=== PATIENT | female | born 1990 | race Caucasian/White ===

== ENCOUNTER 2016-05-21 00:37 | Emergency (ER) | payer MEDICAID ==
[2014-12-29 00:44] VITALS: BMI 40.6
[~2016-05-21 00:37] MED LIST: IBUPROFEN600 MG PO; PERCOCET 5-3251 TAB PO; PRENAVITE1 TAB PO; ZANTAC150 MG PO
[2016-05-21 01:33] LABS: APPEARANCE CLEAR (CLEAR); BILIRUBIN NEGATIVE (NEGATIVE); COLOR YELLOW (YELLOW); GLUCOSE NEGATIVE (NEGATIVE); KETONE NEGATIVE (NEGATIVE); LEUKOCYTE ESTERASE NEGATIVE (NEGATIVE); NITRITE NEGATIVE (NEGATIVE); PH 5.5 (5.0-6.0); PROTEIN NEGATIVE (NEGATIVE); SPECIFIC GRAVITY 1.015 (1.005-1.020); UROBILINOGEN NORMAL (NORMAL)
[2016-05-21 01:38] LABS: BACTERIA FEW /hpf (NONE SEEN); EPITHELIAL CELLS 0-5 /hpf (0-5); RED CELLS - URINE 0-5 /hpf (0-5); WHITE CELLS - URINE RARE /hpf (0-5)
[2016-05-21 02:04] LABS: HCG SERUM NEGATIVE (NEGATIVE)
[2016-05-21 02:07] LABS: BASOPHILS 0.2 % (0.0-2.0); EOSINOPHILS 4.7 % (0-7); HEMATOCRIT 39.8 % (36.0-48.0); HEMOGLOBIN 13.5 g/dL (12-16); IMMATURE GRANULOCYTES 0.2 % (0-5); MCHC 33.9 g/dL (31.0-37.0); MCV 88.4 fL (80.0-100.0); MEAN PLATELET VOLUME 12.5 fL (7.4-10.4); MONOCYTES 6.8 % (2-11); NEUTROPHILS 50.1 % (40-80); WBC 9.1 10x3/uL (4.8-10.8)
[2016-05-21 02:12] LABS: PLATELET COUNT 182 10x3/uL (130-400)
== END 2016-05-21 03:05 | disposition home or self-care (01) ==
LOC: D.ER 00:37
PROVIDERS: Emergency Medicine
DX: R10.2 Pelvic and perineal pain (principal); N76.0 Acute vaginitis; D16.9 Benign neoplasm of bone and articular cartilage, unspecified; F17.200 Nicotine dependence, unspecified, uncomplicated

== ENCOUNTER 2016-05-23 16:43 | Emergency (ER) | payer OTHER ==
[2014-12-29 00:44] VITALS: BMI 40.6
== END 2016-05-23 18:04 | disposition home or self-care (01) ==
LOC: D.ER 16:43
DX: S16.1XXA Strain of muscle, fascia and tendon at neck level, initial encounter (principal); V43.52XA Car driver injured in collision with other type car in traffic accident, initial encounter; Y93.89 Activity, other specified; Y92.410 Unspecified street and highway as the place of occurrence of the external cause; F17.200 Nicotine dependence, unspecified, uncomplicated

== ENCOUNTER 2016-07-30 06:35 | Day surgery (SDC) | payer OTHER ==
[2016-07-29 12:25] LABS: HEMATOCRIT 43.1 % (36.0-48.0); HEMOGLOBIN 14.6 g/dL (12-16); MCH 30.4 pg (26.0-34.0); MCHC 33.9 g/dL (31.0-37.0); MCV 89.6 fL (80.0-100.0); MEAN PLATELET VOLUME 12.3 fL (7.4-10.4); RBC 4.81 10x6/uL (4.00-5.40); WBC 6.1 10x3/uL (4.8-10.8)
[~2016-07-30] VITALS: Ht 154.9 cm; Wt 98.4 kg
[~2016-07-30 06:35] MED LIST changes: +BUPROPION HCL150 M1 PO; +IBUPROFEN800 MG PO
[2016-07-30 10:22] VITALS: BP 97/58; Ht 154.9 cm; Wt 98.4 kg
[2016-07-30 10:31] LABS: HCG URINE NEGATIVE (NEGATIVE)
[2016-07-30] MEDS ORDERED: HYDROCODON-ACE1 EAC7 PO (13:29)
[2016-07-30] MEDS ORDERED: CYCLOBENZAPRINE10 MG PO (13:41)
--- NOTE | 2016-07-30 14:54 | NUR ---
1431--PT COMPLAINS OF PAIN, RATES PAIN 09/29. NORCO 5/325MG X2 GIVEN PO. WILL CONTINUE TO MONITOR. AUSTIN DEVINE
--- NOTE | 2016-07-30 15:18 | NUR ---
1518--PT STATES PAIN IS BETTER, RATES PAIN 06/30. IV DC'D, PT UP TO DRESS AT THIS TIME. AUSTIN RN
--- NOTE | 2016-07-30 15:43 | NUR ---
1540--DISCHARGE INSTRUCTIONS GIVEN, PT VERBALIZES UNDERSTANDING. PT OFF UNIT VIA MELBA. AUSTIN DEVINE
--- NOTE | 2016-07-31 08:20 | OP ---
PATIENT NAME: JOSE GREWAL MEDICAL RECORD: [id number] :91 LOCATION:D.OPS ADMISSION DATE: SURGEON: SALONI VENTURA MD DATE OF OPERATION: 07/30/2016 SURGEON: Saloni Ventura MD. PREOPERATIVE DIAGNOSIS: Urachal sinus. POSTOPERATIVE DIAGNOSIS: Urachal sinus. PROCEDURE PERFORMED: Excision of umbilical sinus, urachal. ANESTHESIA: General. COMPLICATIONS: None. SPECIMENS: None. Case was clean. ANESTHESIA: General. ESTIMATED BLOOD LOSS: 20 cc. OPERATIVE COURSE: After consent was obtained, the patient was taken to the operating room and placed in the supine position on the operating table. Next, general anesthesia was given via endotracheal intubation after a timeout was taken to confirm the correct patient and procedure. The abdomen was then prepped and draped in typical sterile fashion. Local anesthetic was injected just below the umbilicus in a semi-circular pattern. Skin incision was made with a 15-blade scalpel. Dissection continued down to the level of the external oblique fascia using electrocautery. Two fiber structures were dissected on our way towards the umbilical stalk, they were divided and tied off with 0 silk suture. The umbilicus was detached from the external oblique fascia. Again, there was a fibrous cord attached to the undersurface of the umbilical stalk. This was dissected. A right angle was placed around and it was doubly tied off with 0 silk suture. At this time, the umbilical defect was closed primarily with an 0 Prolene suture. The umbilicus was tied to the external oblique fascia with a 2-0 Vicryl suture. The wound was irrigated and suctioned. The subcutaneous tissues reapproximated using 3-0 Vicryl suture. The skin was reapproximated using subcuticular 4-0 Monocryl. The umbilicus was packed with fluffy gauze dressing. The incision was reinforced with Mastisol and Steri-Strips and pressure dressing was applied. At the end of the case, all needle and instrument counts were correct. No complications occurred. The patient was extubated and transferred to the PACU in stable condition. TRANSINT:[id number] Voice Confirmation ID: [id number] DOCUMENT ID: [id number] OPERATIVE REPORT [id number] JOSE GREWAL LORENZO,SALONI Alejandro MD at 0820 CC: [id number] DICTATION DATE: 07/30/16 1336 ELECTRICAL AND INSTRUMENTATION MECHANIC: 07/30/16 2132 [facility] 07/30/16 [facility] [address] [place] [address]
== END 2016-07-30 15:40 | disposition home or self-care (01) ==
LOC: D.OPS 06:35 → D.PAN 09:30 → D.OPS 09:30 → D.PAN 12:30 → D.OPS 12:30 → D.PAN 12:45 → D.OPS 15:40
PROVIDERS: Anesthesiology; Surgery
DX: Q64.4 Malformation of urachus (principal); F17.200 Nicotine dependence, unspecified, uncomplicated; Q43.0 Meckel's diverticulum (displaced) (hypertrophic); Z01.812 Encounter for preprocedural laboratory examination

== ENCOUNTER 2016-08-11 17:59 | Emergency (ER) | payer OTHER ==
[2016-07-30 10:22] VITALS: BMI 41.1
[~2016-08-11 17:59] MED LIST changes: +CYCLOBENZAPRINE10 MG PO; +HYDROCODON-ACE1 EAC7 PO
[2016-08-11 18:51] LABS: BASOPHILS 0.4 % (0-2); EOSINOPHILS 4.1 % (0-7); HEMATOCRIT 44.4 % (36.0-48.0); HEMOGLOBIN 15.1 g/dL (12-16); IMMATURE GRANULOCYTES 0.2 % (0-5); MCH 30.6 pg (26.0-34.0); MCV 89.9 fL (80.0-100.0); MEAN PLATELET VOLUME 11.9 fL (7.4-10.4); MONOCYTES 7.9 % (2-11); NEUTROPHILS 55.4 % (40-80); PLATELET COUNT 179 10x3/uL (130-400); RBC 4.94 10x6/uL (4.00-5.40); RDW 11.7 % (11.5-14.5); WBC 9.8 10x3/uL (4.8-10.8)
[2016-08-11 22:49] LABS: APPEARANCE CLEAR (CLEAR); BACTERIA FEW /hpf (NONE SEEN); BILIRUBIN NEGATIVE (NEGATIVE); COLOR YELLOW (YELLOW); EPITHELIAL CELLS 0-5 /hpf (0-5); GLUCOSE NEGATIVE (NEGATIVE); KETONE NEGATIVE (NEGATIVE); LEUKOCYTE ESTERASE NEGATIVE (NEGATIVE); NITRITE NEGATIVE (NEGATIVE); PROTEIN NEGATIVE (NEGATIVE); RED CELLS - URINE 0-5 /hpf (0-5); SPECIFIC GRAVITY 1.015 (1.005-1.020); UROBILINOGEN NORMAL (NORMAL); WHITE CELLS - URINE 0-5 /hpf (0-5)
== END 2016-08-11 23:31 | disposition home or self-care (01) ==
LOC: D.ER 17:59
PROVIDERS: Emergency Medicine Emergency Medical Services; Family Medicine
DX: R10.9 Unspecified abdominal pain (principal); F17.200 Nicotine dependence, unspecified, uncomplicated

== ENCOUNTER 2018-10-15 10:28 | Emergency (ER) | payer OTHER ==
[~2018-10-15] VITALS: Ht 154.9 cm; Wt 103.6 kg
[2018-10-15 10:38] VITALS: Ht 154.9 cm; Wt 103.6 kg
[2018-10-15] MEDS ORDERED: PRENAVITE1 TAB PO (10:40)
[2018-10-15 11:08] LABS: BASOPHILS 0.1 % (0-2); EOSINOPHILS 2.6 % (0-7); HEMATOCRIT 36.5 % (36.0-48.0); HEMOGLOBIN 13.2 g/dL (12-16); IMMATURE GRANULOCYTES 0.2 % (0-5); LYMPHOCYTES 24.3 % (15-50); MCH 31.3 pg (26.0-34.0); MCHC 36.2 g/dL (31.0-37.0); MCV 86.5 fL (80.0-100.0); MEAN PLATELET VOLUME 11.9 fL (7.4-10.4); NEUTROPHILS 67.8 % (40-80); PLATELET COUNT 161 10x3/uL (130-400); RBC 4.22 10x6/uL (4.00-5.40); RDW 12.3 % (11.5-14.5)
[2018-10-15 11:37] LABS: ALBUMIN 3.2 g/dL (3.4-5.0); ALKALINE PHOSPHATASE 55 U/L (46-116); ALT (SGPT) 14 U/L (10-68); CALC OSMOLALITY 271 mosm/kg (275-300); CALCIUM 8.7 mg/dL (8.5-10.1); CARBON DIOXIDE 24.2 mmol/L (21.0-32.0); CHLORIDE - SERUM 104 mmol/L (98-107); CREATININE - SERUM 0.6 mg/dL (0.6-1.3); POTASSIUM - SERUM 3.5 mmol/L (3.5-5.1); SODIUM 138 mmol/L (136-145); UREA NITROGEN 5 mg/dL (7-18); eGFR NON AFRICAN AMERICAN > 90 mL/min (90-120)
[2018-10-15 11:44] LABS: APPEARANCE HAZY (CLEAR); BILIRUBIN NEGATIVE (NEGATIVE); COLOR STRAW (YELLOW); GLUCOSE NEGATIVE (NEGATIVE); KETONE SMALL mg/dL (NEGATIVE); NITRITE NEGATIVE (NEGATIVE); PROTEIN NEGATIVE (NEGATIVE); UROBILINOGEN NORMAL (NORMAL)
[2018-10-15 11:45] LABS: BACTERIA MODERATE /hpf (NONE SEEN); EPITHELIAL CELLS 0-5 /hpf (0-5); MUCUS <1+ /lpf (NONE SEEN); RED CELLS - URINE 0-5 /hpf (0-5); WHITE CELLS - URINE RARE /hpf (0-5)
[2018-10-15 11:53] LABS: GLUCOSE 81 mg/dL (74-106)
[2018-10-15 11:59] LABS: HCG - QUANTITATIVE (MATERNAL) 10769 mIU/mL
[2018-10-15] MEDS ORDERED: HYDROCODON-ACE1 EAC7 PO (12:05)
[2018-10-15 12:12] VITALS: BP 118/68
== END 2018-10-15 12:14 | disposition home or self-care (01) ==
LOC: D.ER 10:28
PROVIDERS: Family Medicine
DX: O26.892 Other specified pregnancy related conditions, second trimester (principal); Z3A.17 17 weeks gestation of pregnancy; M54.5 Low back pain

== ENCOUNTER 2019-01-29 19:57 | Outpatient (CLI) | payer OTHER ==
[2018-10-15 10:38] VITALS: BMI 43.1
[2019-02-25] MEDS ORDERED: PROTONIX40 MG (19:44)
[2019-02-25] MEDS ORDERED: ACETAMINOPHEN500 M1 PO (19:45)
== END 2019-01-29 21:24 | disposition home or self-care (01) ==
LOC: D.LDO 19:57
PROVIDERS: ATTEND Obstetrics & Gynecology
DX: O36.8130 Decreased fetal movements, third trimester, not applicable or unspecified (principal); Z3A.33 33 weeks gestation of pregnancy

== ENCOUNTER → 2019-02-25 18:31 | Outpatient (CLI) | payer OTHER ==
[2018-10-15 10:38] VITALS: BMI 43.1
[~2019-02-25 18:31] MED LIST changes: +ACETAMINOPHEN500 M1 PO; +PROTONIX40 MG
[2019-02-25 19:16] LABS: APPEARANCE CLEAR (CLEAR); BILIRUBIN NEGATIVE (NEGATIVE); COLOR YELLOW (YELLOW); GLUCOSE NEGATIVE (NEGATIVE); KETONE NEGATIVE (NEGATIVE); NITRITE NEGATIVE (NEGATIVE); PROTEIN NEGATIVE (NEGATIVE); SPECIFIC GRAVITY 1.005 (1.005-1.020); UROBILINOGEN NORMAL (NORMAL)
== END | disposition home or self-care (01) ==
LOC: D.LDO 18:31
PROVIDERS: ATTEND Student in an Organized Health Care Education/Training Program
DX: O36.8190 Decreased fetal movements, unspecified trimester, not applicable or unspecified (principal); Z3A.00 Weeks of gestation of pregnancy not specified

== ENCOUNTER → 2019-03-10 18:33 | Outpatient (CLI) | payer OTHER ==
[2018-10-15 10:38] VITALS: BMI 43.1
[~2019-03-10 18:33] MED LIST changes: +FUROSEMIDE20 MG PO; +MOTRIN600 MG PO; +PERCOCET 7.5/321 TAB PO
== END | disposition home or self-care (01) ==
LOC: D.LDO 18:33
PROVIDERS: ATTEND Obstetrics & Gynecology
DX: O36.8120 Decreased fetal movements, second trimester, not applicable or unspecified (principal); Z3A.23 23 weeks gestation of pregnancy

== ENCOUNTER 2019-03-11 08:19 | Inpatient (IN) | payer OTHER ==
[~2019-03-11] VITALS: Ht 154.9 cm; Wt 107.5 kg
[2019-03-11] VITALS (17 sets, daily range): BP systolic 91–115; BP diastolic 50–82; Ht 154.9 cm; Wt 107.5 kg
[~2019-03-11 08:19] MED LIST changes: -FUROSEMIDE20 MG PO; -MOTRIN600 MG PO; -PERCOCET 7.5/321 TAB PO
[2019-03-11 09:24] LABS: HEMATOCRIT 36.7 % (36.0-48.0); HEMOGLOBIN 12.3 g/dL (12-16); MCHC 33.5 g/dL (31.0-37.0); MCV 89.5 fL (80.0-100.0); MEAN PLATELET VOLUME 11.5 fL (7.4-10.4); RBC 4.1 10x6/uL (4.00-5.40); RDW 12.8 % (11.5-14.5); WBC 12.8 10x3/uL (4.8-10.8)
--- NOTE | 2019-03-11 13:10 | NUR ---
RECEIVED FROM RECOVERY ROOM. ALERT AND ORIENTED. IV NS 20 U PITOCIN PLACED ON ALARIS PUMP AT 125ML/HR. U/3 MASSAGED TO FIRM, SMALL CLOTS X 3 EXPRESSED, PAD WEIGHED WITH TOTAL LOSS OF 22 ML LOCHIA RUBRA. LTCS INCISION INTACT WITH DERMABOND. DE JESUS DRAINING DARK YELLOW URINE. ENSURED PATENCY BY ADJUSTING TUBING. IV INFUSING IN LEFT HAND. SCDS IN PLACE ON PUMP AND WORKING BILATERALLY. ICE BACK OVER GOWN, OVER INCISION. INFANT IN NURSERY. SIDE RAILS UP X 2, CALL LIGHT IN REACH. UNABLE TO MOVE LE AT THIS TIME. READY TO SEE .
--- NOTE | 2019-03-11 13:30 | NUR ---
U/3 FIRM, RUBRA SMALL TO MOD. TOSHIA-PADS X 2 CHANGED 46 ML CC LOSS AFTER WEIGHING PADS. UNABLE TO MOVE LE. DENIES PAIN. SIDE RAILS REMAIN UP.
--- NOTE | 2019-03-11 13:31 | NUR ---
FUNDUS IS MIDLINE, BOGGY. 3U. MODERATE LOCHIA PRESENT. TWO CLOTS NOTED ON TOSHIA PAD. WILL CONTINUE TO MONITOR.
--- NOTE | 2019-03-11 14:00 | NUR ---
U/3 FIRM, MIDLINE, RUBRA SCANT, DE JESUS DRAINING SMALL AMOUND DARK URINE. TAKING PO FLUIDS WITHOUT DIFFICULTY. NO NAUSEA, DENIES PAIN, UNABLE TO MOVE LE. SIDERAILS UP X 2, CALL LIGHT IN REACH.
--- NOTE | 2019-03-11 14:15 | NUR ---
U/3 FIRM MIDLINE, SMALL LOCHIA RUBRA, PAD X 1 CHANGED. DE JESUS DRAINING, IV PATENT, INFANT IN ROOM. NO REQUESTS, MOVES LE SLIGHTLY AT KNEES. VISITORS IN ROOM. WAS INSTRUCTED ON INCENTIVE SPIROMETER WHEN FIRST RECEIVED FROM RECOVERY ROOM. USED THREE TIMES AT THAT TIME WITH WEAK COUGH. USED AGAIN AT THIS TIME WITH STRONGER NON-PRODUCTIVE COUGH. ENCOURAGED TO USE HOURLY AT LEAST 10 TIMES. SITTING UP IN HIGH FOWLERS POSITION. CALL LIGHT IN REACH.
[2019-03-11 15:09] LABS: APPEARANCE CLEAR (CLEAR); BILIRUBIN NEGATIVE (NEGATIVE); COLOR YELLOW (YELLOW); GLUCOSE NEGATIVE (NEGATIVE); KETONE NEGATIVE (NEGATIVE); NITRITE NEGATIVE (NEGATIVE); PROTEIN NEGATIVE (NEGATIVE); UROBILINOGEN NORMAL (NORMAL)
--- NOTE | 2019-03-11 15:10 | NUR ---
INCENTIVE SPIROMETER USED. POSITIONED FROM LOW FOWLERS TO RIGHT SIDE FOR COMFORT. DE JESUS DRAINING 15 ML IN UROMETER. RUBRA SMALL, TOSHIA-PAD X 1 CHANGED. SIDERAILS UP X 2, CALL LIGHT IN REACH. NO REQUESTS.
--- NOTE | 2019-03-11 15:55 | NUR ---
C/O PAIN. DILAUDID GIVEN IVP OVER 2 MINUTES.
--- NOTE | 2019-03-11 17:15 | NUR ---
PT C/O NUMBNESS IN HANDS AND FEET, SAYS IT HAS BEEN AN ONGOING ISSUE WITH , USUALLY FEELS BETTER WHEN DANGLING ARMS OFF SIDES OF BED AND SITTING UP WITH LEGS DANGLING. WAS ASSISTED BY ANOTHER NURSE TO ELEVATE LEGS ON PEANUT BALL, REMOVED BALL AND EXPLAINED MAY BE BETTER FOR CIRCULATION NOT TO HAVE LE NOT ELEVATED HIGH. 95 ML DARK URINE OUTPUT NOTED. DR ADAN ON L&D AND NOTIFIED OF URINE OUTPUT AND ABOVE COMPLAINTS. ORDERS RECEIVED FOR IV BOLUS 1 LITER AND IF C/O NOT RESOLVED AT 2 WKS HE WILL REFER FOR NEURO EVALUATION.
--- NOTE | 2019-03-11 17:25 | NUR ---
IV LR FLUID BOLUS STARTED AT 999 ML/HR PER ALARIS PUMP. REMINDED PT TO KEEP MOVING LOWER EXTREMETIES AND UPPER EXTREMETIES/HANDS TO IMPROVE CIRCULATION. INFANT IN ARMS, SIDERAILS UP X 2, CALL LIGHT IN REACH. VISITORS IN ROOM. U/3 FIRM MIDLINE, LUNGS CLEAR BILATERALLY-ASSESSED BEFORE STARTING IV BOLUS.
--- NOTE | 2019-03-11 18:08 | OP ---
PATIENT NAME: JOSE HEBERT MEDICAL RECORD: [id number] :91 LOCATION:[id number] ADMISSION DATE:03/11/19 SURGEON: JACK ADAN MD DATE OF OPERATION: 03/11/2019 PREOPERATIVE DIAGNOSES: 1. at 38 and 6. 2. Nonreassuring monitoring. 3. Uterine contractions. 4. Prior section. POSTOPERATIVE DIAGNOSES: 1. at 38 and 6. 2. Nonreassuring monitoring. 3. Uterine contractions. 4. Prior section. PROCEDURE: Repeat low transverse section. SURGEON: Jack Adan MD POINT OF SALE ASSOCIATE: Tomas Navarrete. ANESTHESIOLOGIST: Min Brand. ANESTHESIA: Spinal. FINDINGS: Viable male , vertex presentation, Apgars 9 and 9, weight 3191 grams. Unremarkable uterus, tubes and ovaries. SPECIMEN REMOVED: Placenta. SPECIMEN DISPOSITION: Discarded. ESTIMATED BLOOD LOSS: 700 cc. URINE: 100 cc of clear urine. FLUIDS: 1500 cc of Lactated Ringer's. COMPLICATIONS: None. DRAIN: [place] to gravity. INDICATIONS: The patient is a 28-year-old female with persistent decreased movement. The patient while on NST was noted to have a reactive monitoring; however, regular uterine contractions were seen. The patient is consented for repeat low transverse section. DESCRIPTION OF PROCEDURE: After informed consent was assured, the patient was taken to the operating room where anesthetic was obtained. The patient was now prepped and draped and anesthetic assessed and found to be adequate. Incision was made over the old scar and carried down to the underlying layer of the fascia. The fascia was opened in the midline and extended laterally. Fascia was now dissected free of the rectus bellies. Rectus bellies were now OPERATIVE REPORT [id number] JOSE HEBERT and the peritoneum entered bluntly. The DeLee all-purpose retractor was inserted and a low transverse hysterotomy was performed after developing a bladder flap. was delivered onto the abdomen atraumatically and the cord was doubly clamped and cut and passed to the attendant. The placenta was delivered via Crede maneuver. The uterus was now exteriorized and cleared of all clot and debris. The hysterotomy was closed with a running stitch of Vicryl. After this has been performed, the rectus bellies were reapproximated loosely with Monocryl in the midline. Sponge, lap, and needle counts correct times 1 at this point. The fascia was now closed followed by reapproximation of the subcutaneous tissue with the plain gut stitch. Sponge, lap, and needle counts correct times 2 at the close of the skin. Sterile dressing was applied. TRANSINT:[id number] Voice Confirmation ID: [id number] DOCUMENT ID: [id number] JACK ADAN MD at 1808 CC: [id number] DICTATION DATE: 03/11/19 1200 MEMBER OF TECHNICAL STAFF: 03/11/19 1613 ADM IN [facility] [address] [place] [address]
--- NOTE | 2019-03-11 18:40 | NUR ---
U/3 FIRM, C/O NUMBNESS IN HANDS, WORRIED ABOUT NOT BEING ABLE TO TAKE CARE OF . EXPLAINED THAT WE CAN HELP HER UNTIL SHE IS UP MOVING AROUND AND THAT INFANT CAN STAY IN NURSERY WHEN NO ONE ELSE IS AVAILABLE TO HELP HER TONIGHT. VERBALIZED UNDERSTANDING. SAYS SHE IS BEGINNING TO START HURTING AGAIN. NOT TIME FOR NARCOTICS BUT TORADOL IS DUE. WILL GIVE SCHEDULED DOSE. 08/30 INCISIONAL BURNING. IV FLUID BOLUS NEAR COMPLETION.
--- NOTE | 2019-03-11 19:25 | NUR ---
PERCOCET 10 MG GIVEN AT THIS TIME FOR PAIN. WILL CONTINUE TPO MONITOR. Lloyd GONZALEZ RN
--- NOTE | 2019-03-11 20:00 | NUR ---
PT REC'D IN BED AT THIS TIME. SALINE LOCK INTACT. SCDS IN PLACE AND FUNCTIONAL. DE JESUS CATH PATENT. ICE PACK TO ABDOMEN. PAIN LEVEL OF 3. WILL CONTINUE TO MONITOR. SEE FLOWSHEET FOR COMPLETE ASSESSMENT. Lloyd GONZALEZ RN
--- NOTE | 2019-03-11 20:20 | NUR ---
DE JESUS CATH EMPTIED AT THIS TIME. 100 ML NOTED. Lloyd GONZALEZ RN
--- NOTE | 2019-03-11 21:20 | NUR ---
45 ML NOTED IN DE JESUS CATH AT THIS TIME. WILL CONTINUE TO MONITOR. Lloyd GONZALEZ RN
--- NOTE | 2019-03-11 21:30 | NUR ---
ON THE UNIT. REPORT OF PT URINARY OUTPUT GIVEN AND ORDER REC'D FOR LASIX 2O MG SIVP. L LSIA RN
--- NOTE | 2019-03-11 21:46 | NUR ---
LASIX 2O MG GIVEN AT THIS TIME. 50 ML EMPTIED FROM UROMETER PRIOS TO ADMINISTRATION. Oz GONZALEZ RN
--- NOTE | 2019-03-11 22:30 | NUR ---
400 ML OF CLEAR YELLOW URINE NOTED TO DE JESUS CATH. WILL CONTINUE TO MONITOR. Lloyd GONZALEZ RN
--- NOTE | 2019-03-11 23:35 | NUR ---
PT MEDICATED FOR PAIN LEVEL OF 8. WILL CONTINUE TO MONITOR. 700 ML OF CLEAR YELLOW URINE EMPTIED FROM CATHETER. WILL CONTINUE TO MONITOR PAIN AND OUTPUT. SYBIL DARNELL
--- NOTE | 2019-03-12 00:40 | NUR ---
300 ML EMPTIED FROM DE JESUS CATH. DE JESUS DISCONTINUED AND PATIENT UP TO THE RESTROOM. PERICARE PERFORMED. PT VOIDED APPROXIMATELY 50 ML AT THIS TIME. WILL CONTINUE TO MONITOR. Lloyd GONZALEZ RN
--- NOTE | 2019-03-12 01:00 | NUR ---
toradol given for pain at this time. will continue to monitor. annette fontana rn
--- NOTE | 2019-03-12 02:23 | NUR ---
PT STATES THAT PAIN IS A 4. PT INTERMITTENTLY SLEEPING. Lloyd GONZALEZ RN
[2019-03-12 04:47] VITALS: BP 100/55
--- NOTE | 2019-03-12 04:47 | NUR ---
VSS. PT STATES THAT PAIN IS AN 8. L LISA, RN
--- NOTE | 2019-03-12 05:15 | NUR ---
PT UP TO RESTROOM FOR PERICARE AND TO VOID. PT VOIDED 300 ML AT THIS TIME. PERICARE PERFORMED PER PATIENT AND PT MEDICATED FOR PAIN. PT UP TO AMBULATE. + FLATUS NOTED. Lloyd GONZALEZ RN
[2019-03-12 06:49] LABS: BASOPHILS 0.1 % (0-2); EOSINOPHILS 1.1 % (0-7); HEMATOCRIT 33.8 % (36.0-48.0); HEMOGLOBIN 11.2 g/dL (12-16); IMMATURE GRANULOCYTES 0.2 % (0-5); LYMPHOCYTES 26.6 % (15-50); MCHC 33.1 g/dL (31.0-37.0); MCV 90.6 fL (80.0-100.0); MEAN PLATELET VOLUME 11.7 fL (7.4-10.4); MONOCYTES 6.6 % (2-11); NEUTROPHILS 65.4 % (40-80); PLATELET COUNT 190 10x3/uL (130-400); RBC 3.73 10x6/uL (4.00-5.40); RDW 12.9 % (11.5-14.5)
--- NOTE | 2019-03-12 06:49 | NUR ---
PT REC'D IN BED AT THIS TIME. RESTING WELL. MEDICATED FOR PAIN LEVEL OF 4 WITH TORADOL. WILL CONTINUE TO MONITOR. Lloyd GONZALEZ RN
--- NOTE | 2019-03-12 07:08 | NUR ---
ASSUMED CARE OF THIS PATIENT, AROUSED EASILY FROM SLEEP BUT DESIRES TO GO BACK TO SLEEP. WILL COMPLETE SHIFT ASSESSMENT WHEN AWAKE. SIDERAILS UP X2, CALL LIGHT IN REACH.
[2019-03-12 07:12] LABS: RAPID PLASMA REAGIN Non Reactive (Non Reactive)
--- NOTE | 2019-03-12 08:10 | NUR ---
SITTING UP IN BED EATING BREAKFAST. INFANT SLEEPING IN CRIB, RESP EVEN. 07/30 INCISIONAL BURNING SAYS IT'S "LIVEABLE". NO YET TIME FOR PAIN MEDICATION. "IT'S JUST ANNOYING". STILL WITH NUMBNESS OF HANDS AND DECREASED STRENGTH. DISCUSSED USE OF BULB SYRINGE. TO CALL IF ANY ASSISTANCE IS NEEDED. SIDE RAILS UP X 2, CALL LIGHT IN REACH. SCD'S REMOVED FOR INSPECTION. PT DESIRES TO KEEP OFF AT THIS TIME. REMINDED TO MOVE LEGS AROUND FREQUENTLY. VERBALIZED UNDERSTANDING.
[2019-03-12 08:48] VITALS: BP 105/55
--- NOTE | 2019-03-12 08:48 | NUR ---
SHIFT ASSESSMENT COMPLETED. UP TO BATHROOM TO VOID. VOIDED 300 ML WITH SMALL LOCHIA NOTED IN [place] HAT. RETURNED TO BED AFTER VOIDING. SIDE RAILS UP X 2, CALL LIGHT IN REACH.
--- NOTE | 2019-03-12 09:49 | NUR ---
INFANT TO NURSERY, PT UP TO SHOWER, COMPLETE LINEN CHANGE DONE. PLANS AMBULATION, PAIN MANAGEMENT NEEDED.
--- NOTE | 2019-03-12 10:04 | NUR ---
SITTING ON EDGE OF BED. REQUESTED PAIN MEDICATION FOR 6/10 INCISION BURNING/CRAMPING. PERCOCET 5 MG GIVEN PO AFTER DISCUSSING PAIN MANAGEMENT OPTIONS. INFANT IN NURSERY. PLANS AMBULATING AFTER RESTING. SIDE RAIL UP X 2, CALL LIGHT IN REACH.
--- NOTE | 2019-03-12 11:05 | NUR ---
AMBULATING IN ROOM. SAYS SHE VOIDED APPROX 30 MINS AGO, 100 ML IN [place] HAD. DENIES NEEDING ANYTHING. INFANT IN ROOM, VISITOR X 1 IN ROOM. TO CALL IF ANYTHING IS NEEDED.
--- NOTE | 2019-03-12 11:59 | NUR ---
AMBULATED TO BATHROOM BY SELF. VISITORS AND INFANT IN ROOM. RECEIVED WRIST BRACES X 2, WILL ASSIST PT WITH PUTTING ON AFTER LUNCH. NO REQUESTS AT THIS TIME.
[2019-03-12 12:44] VITALS: BP 108/64
--- NOTE | 2019-03-12 12:57 | NUR ---
VOIDED 100 ML URINE. ASSISTED WITH PLACING WRIST BRACES BILATERALLY. HAD TO REMOVE SALINE LOCK FOR LEFT HAND IN ORDER TO FACILITATE BRACE PLACEMENT. EDEMA > IN LEFT HAND AND WRIST, ADJUSTED BRACE TO ACCOMODATE. INSTRUCTED ON APPLICATION. SCHEDULED TORADOL WAS GIVEN WITH 6/10 INCISIONAL INTERMITTENT BURNING. VISITORS IN ROOM. IN NURSERY FOR BAR EXAMINER EVALUATIONS. FRESH WATER GIVEN. UP AD TUNG IN ROOM. ENCOURAGE PT TO REMOVE WRIST BRACED Q 1-2 HOURS AND MOVE HANDS AND WRIST AROUND. VERBALIZED UNDERSTANDING. SIDE RAILS UP X2, CALL LIGHT IN REACH. SANAM CANTRELL.
--- NOTE | 2019-03-12 13:24 | NUR ---
PT SAID DR ADAN TOLD HER HE WAS GOING TO ORDER A PILL (LASIX). NO ORDERS NOTED FOR THAT, CONTACTED DR ADAN, NEW ORDERS RECEIVED.
--- NOTE | 2019-03-12 13:38 | NUR ---
REPORT TO EDVIN ADKINS RN.
--- NOTE | 2019-03-12 14:40 | NUR ---
PT SITTING UP ON SIDE OF BED RESTING QUIETLY IN CRIB AT BEDSIDE. PT RATING PAIN 8/10 AND REQUESTS NORCO. NORCO 10/325MG GIVEN PO. UNABLE TO SCAN BARCODE DUE TO MISSING PORTION OF PILL PACKET. LASIX GIVEN ORDERED AT THIST [facility]. TO NURSERY PER PT REQUEST AND PT REPORTS THAT SHE WANTS TO SLEEP UNTIL THE NEXT TIME FOR FEEDING. PT DENIES FURTHER NEEDS AT THIS TIME.
--- NOTE | 2019-03-12 15:00 | NUR ---
PT IN HIGH FOWLERS POSITION VISITING WITH FOB. DENIES NEEDS AT THIS TIME.
[2019-03-12 17:33] VITALS: BP 117/74
--- NOTE | 2019-03-12 17:33 | NUR ---
PT IN HIGH FOWLERS POSITION VISITING WITH FAMILY. UP IN FAMILY MEMBER ARMS FEEDING. VSS. PT DENIES NEEDS AT THIS TIME.
--- NOTE | 2019-03-12 18:46 | NUR ---
PT RATES PAIN 7/10 AND REQUESTS PAIN MEDICATION, WELL SOMETHING FOR GAS PAIN. PERCOCET 10/325MG, TORADOL 10MG, AND SIMETHICONE GIVEN PO. PT DENIES FURTHER NEEDS AT THIS TIME.
--- NOTE | 2019-03-12 19:12 | NUR ---
REPORT GIVEN TO 7P SHIFT
--- NOTE | 2019-03-12 19:15 | NUR ---
BEDSIDE ROUNDING W/A JED RN AT THIS TIME. REC'D PT AA&O X 4 SITTING UP IN BED. PT IS AA&O X 4. PAIN ASSESSED. PT STATES PAIN IS BETTER. RATED 5/10. SHIFT ASSESSMENT COMPLETED. SEE FLOWSHEET. PM SHIFT POC IN REGARDS TO AMBULATION, CONTINUED I/S AND PAIN MANAGEMENT DISUSSED. PT VEBALIZES UNDERSTANDING AND IS AGREEABLE. PT WISHES TO HAVE HER DINNER TRAY REMAIN AT BEDSIDE TO EAT LATER. PT HAS MULTIPLE DRINKS AT BEDSIDE. DENIES NEEDS AT THIS TIME. BED LOW, SIDE RAILS UP X 2. CALL LIGHT AND BEDSIDE TABLE AT PT'S SIDE. NBN NURSE AT BEDSIDE TALKING W/PT. UP IN MOMS ARMS FOR BONDING.
[2019-03-12 19:23] VITALS: BP 115/64
--- NOTE | 2019-03-12 20:15 | NUR ---
ROUNDS MADE. PT GETTING READY TO GET UP TO THE BATHROOM. REQUEST THIST RN TO TRANSFER TO OPEN CRIB SO SHE MAY GET UP. PT ASSISTED W/REQUEST. PT OOB W/OUT ASSISTANCE AND AMBULATORY TO BR. DENIES NEEDS. PAIN ASSESSED. PT STATES "IT'S OK." UNABLE TO VERBALIZE A NUMBER.
--- NOTE | 2019-03-12 21:15 | NUR ---
PT AMBULATING IN PERALES PUSHING INFANT IN OPEN CRIB TO NBN. PT AMBULATES BACK TO NURSING STATION AND REPORTS SHE PLANS TO REST. PT DENIES NEEDS AT THIS TIME.
--- NOTE | 2019-03-12 22:32 | NUR ---
PT RESTING QUIETLY WITH EYES CLOSED LAYING ON LEFT SIDE. RESP REGULAR AND UNLABORED, NO S/S OF DISTRESS NOTED. BED IN LOW POSITION WITH SRUP X2. CALL LIGHT AND PHONE WITHIN REACH. WILL CONTINUE TO MONITOR.
--- NOTE | 2019-03-13 00:25 | NUR ---
PT RINGS CALL LIGHT REQUESTING PAIN MEDICATION. THIS RN TO BEDSIDE TO MEDICATED PT W/ ORDERED PERCOCET 10/325MG TAB. PT RATES PAIN 8/10. DENIES FURTHER NEEDS AT THIS TIME. VITAL SIGNS OBTAINED AT THIS TIME. SEE EMAR. DINNER TRAY REMOVED FROM ROOM AT THIS TIME.
[2019-03-13 00:29] VITALS: BP 109/71
--- NOTE | 2019-03-13 01:26 | NUR ---
TO PT'S ROOM FOR TORADOL ADMIN. PT CURRENTLY RESTING W/EYES CLOSED. RESP EVEN AND UNLABORED. SNORING AUDIBLE. PT LEFT UNDISTURBED AT THIS TIME.
--- NOTE | 2019-03-13 02:05 | NUR ---
AMBULATORY IN [place], C/O INCISIONAL, ABD, AND BACK DISCOMFORT5-08/30. TORADOL GIVEN PER ORDER AND PT REQUEST. REPORTS THAT SHE FEELS ABD DISCOMFORT IS R/T TO GAS PAIN, SIMETHICONE 80 MG PO ALSO GIVEN PER PT REQUEST. ICE WATER PROVIDED. STEADY GAIT NOTED. DENIES ADDITIONAL NEEDS. WILL CONTINUE TO MONITOR.
--- NOTE | 2019-03-13 03:06 | NUR ---
AMBULATORY BACK TO ROOM FROM [facility]. PAIN NOW 05/30, REPORTS THAT SHE IS GOING TO REST. ICE WATER IN HAND. DENIES NEEDS. REFUSES SCD'S. BED IN LOW POSITION WITH SRUP X2. CALL LIGHT AND PHONE WITHIN REACH. WILL CONTINUE TO MONITOR.
[2019-03-13 04:47] VITALS: BP 104/58
--- NOTE | 2019-03-13 04:47 | NUR ---
ROUNDS MADE. PT WATCHING TV. VSS. FUNDUS FIRM, MIDLINE AND U2-U3, SCANT RUBRA LOCHIA, NO CLOTS NOTED. C/O ABD AND INCISIONAL DISCOMFORT 06/30, DENIES NEED FOR INTERVENTION. REFUSES SCD'S. BED IN LOW POSITION WITH SRUP X2. CALL LIGHT AND PHONE WITHIN REACH. REMAINS IN NBN. ENCOURAGED PT TO REST, STATES THAT SHE IS GOING TO TRY TO REST BEFORE COMES BACK TO ROOM.
--- NOTE | 2019-03-13 06:42 | NUR ---
RESTING QUIETLY WITH EYES CLOSED IN SEMI-FOWLERS POSITION. RESP REGULAR AND UNLABORED, NO S/S OF DISTRESS NOTED. INFANT RESTING QUIETLY IN OPEN CRIB AT BEDSIDE. BED IN LOW POSITION WITH SRUP X2. CALL LIGHT AND PHONE WITHIN REACH. WILL CONTINUE TO MONITOR.
[2019-03-13 07:11] VITALS: BP 108/56
--- NOTE | 2019-03-13 07:16 | NUR ---
ASSUME CARE OF THIS PATIENT. C/O 08/30 INCISIONAL BURNING. PERCOCET 10 MG GIVEN PO FOR RELIEF AFTER DISCUSSING OPTIONS. VS OBTAINED. WILL COMPLETE SHIFT ASSESSMENT AFTER BREAKFAST. IN CRIB, RESP EVEN. SIDE RAILS UP X 2, CALL LIGHT IN REACH.
--- NOTE | 2019-03-13 08:34 | NUR ---
SITTING UP IN BED BOTTLE FEEDING INFANT. UP AD TUNG TO VOID. SAYS HER PAIN IS MUCH BETTER, NOW A 3/10. WILL COMPLETE ASSESSMENT AFTER BOTTLE FEEDING. ATE 90% BREAKFAST. SIDE RAILS UP X 2, CALL LIGHT IN REACH.
--- NOTE | 2019-03-13 08:50 | NUR ---
O+ RUBELLA IMMUNE, NON SMOKER, HAS BEEN BOTTLEFEEDING, RECEIVED TDAP AND FLU VACCINATION IN CLINIC ON 12/27/2018.
--- NOTE | 2019-03-13 09:21 | NUR ---
FINISHED BOTTLE FEEDING INFANT. SHIFT ASSESSMENT COMPLETED. GETTING READY TO GET UP TO VOID. NO REQUESTS AT PRESENT. FAMILY WILL BE BRINGING CARSEAT IN TODAY. SIDE RAILS UP X 2, CALL LIGHT IN REACH. PLANS TO AMBULATE IN PERALES AFTER VOIDING. HAS BEEN PASSING FLATUS.
--- NOTE | 2019-03-13 09:51 | NUR ---
AMBULATE IN PERALES PUSHING IN CRIB. DENIES NEEDING ANYTHING.
--- NOTE | 2019-03-13 10:47 | NUR ---
DR ADAN VISITED. DC ORDERS RECEIVED.
[2019-03-13] MEDS ORDERED: MOTRIN600 MG PO (10:48)
[2019-03-13] MEDS ORDERED: PERCOCET 7.5/321 TAB PO (10:51)
[2019-03-13] MEDS ORDERED: FUROSEMIDE20 MG PO (10:52)
[2019-03-13] MEDS ORDERED: IBUPROFEN800 MG PO (11:54)
--- NOTE | 2019-03-13 12:24 | NUR ---
PERCOCET 10 MG GIVEN PO FOR RELIEF OF INCISIONAL BURNING 08/30. READY TO GO HOME. DC TEACHING COMPLETED TO INCLUDE POST OP CARE, S&S INFECTION, DANGER SIGNS, PP DEPRESSION, MEDICATION ADMINISTRATION, BREAST CARE AND F/U. VERBALIZED UNDERSTANDING. WILL DC WHEN INFANT IN DC'D. BENDER HELPER CURRENTLY HERE. PT QUESTIONS ANSWERED.
--- NOTE | 2019-03-13 14:03 | NUR ---
DC'D AMBULATORY, PT DECLINED WHEELCHAIR. HAS PRESCRIPTIONS AND DC INSTRUCTIONS. ALL BELONGINGS REMOVED FROM ROOM.
== END 2019-03-13 14:03 | disposition home or self-care (01) | DRG 788 ==
LOC: D.LD 08:19
PROVIDERS: ADMIT Obstetrics & Gynecology; ATTEND Obstetrics & Gynecology
PROC: 10D00Z1 Extraction of Products of Conception, Low, Open Approach (ICD-10-PCS; principal; 2019-03-11 12:00)
DX: O36.8130 Decreased fetal movements, third trimester, not applicable or unspecified (principal); Z3A.38 38 weeks gestation of pregnancy; Z37.0 Single live birth; G56.03 Carpal tunnel syndrome, bilateral upper limbs

== ENCOUNTER 2019-03-21 18:18 | Emergency (ER) | payer OTHER ==
[~2019-03-21] VITALS: Ht 154.9 cm; Wt 100.5 kg
[~2019-03-21 18:18] MED LIST changes: +FUROSEMIDE20 MG PO; +MOTRIN600 MG PO; +PERCOCET 7.5/321 TAB PO
[2019-03-21 18:23] VITALS: Ht 154.9 cm; Wt 100.5 kg
[2019-03-21 19:01] LABS: BASOPHILS 0.4 % (0-2); EOSINOPHILS 5.7 % (0-7); HEMOGLOBIN 13.7 g/dL (12-16); IMMATURE GRANULOCYTES 0.2 % (0-5); LYMPHOCYTES 40.6 % (15-50); MCH 29.7 pg (26.0-34.0); MCHC 33.4 g/dL (31.0-37.0); MCV 88.7 fL (80.0-100.0); MEAN PLATELET VOLUME 10.5 fL (7.4-10.4); NEUTROPHILS 46.1 % (40-80); PLATELET COUNT 310 10x3/uL (130-400); RBC 4.62 10x6/uL (4.00-5.40); RDW 12.2 % (11.5-14.5)
[2019-03-21 19:14] LABS: ANION GAP 15.7 mmol/L (8-16); POTASSIUM - SERUM 3.7 mmol/L (3.5-5.1)
[2019-03-21 19:27] LABS: ALBUMIN 3.1 g/dL (3.4-5.0); BILIRUBIN - TOTAL 0.29 mg/dL (0.2-1.3); PROTEIN - SERUM 7.7 g/dL (6.4-8.2)
[2019-03-21 22:30] LABS: APPEARANCE CLEAR (CLEAR); BILIRUBIN NEGATIVE (NEGATIVE); COLOR YELLOW (YELLOW); GLUCOSE NEGATIVE (NEGATIVE); KETONE NEGATIVE (NEGATIVE); NITRITE NEGATIVE (NEGATIVE); PROTEIN NEGATIVE (NEGATIVE); UROBILINOGEN NORMAL (NORMAL)
[2019-03-21 22:55] VITALS: BP 132/86
== END 2019-03-21 22:55 | disposition home or self-care (01) ==
LOC: D.ER 18:18
PROVIDERS: Emergency Medicine
DX: R60.0 Localized edema (principal)

== ENCOUNTER 2019-08-05 18:49 | Emergency (ER) | payer OTHER ==
[~2019-08-05] VITALS: Ht 154.9 cm; Wt 101.8 kg
[2019-08-05 19:14] VITALS: Ht 154.9 cm; Wt 101.8 kg
[2019-08-05 20:38] VITALS: BP 119/76
== END 2019-08-05 20:38 | disposition home or self-care (01) ==
LOC: D.ER 18:49
DX: S06.0X9A Concussion with loss of consciousness of unspecified duration, initial encounter (principal); R51 Headache; R11.2 Nausea with vomiting, unspecified; K21.9 Gastro-esophageal reflux disease without esophagitis; W22.8XXA Striking against or struck by other objects, initial encounter; Y93.9 Activity, unspecified; Y92.9 Unspecified place or not applicable

== ENCOUNTER 2019-11-18 12:14 | Emergency (ER) | payer OTHER ==
[~2019-11-18] VITALS: Ht 154.9 cm; Wt 100.0 kg
[2019-11-18 12:32] VITALS: BP 99/68; Ht 154.9 cm; Wt 100.0 kg
[2019-11-18 13:12] LABS: BASOPHILS 0.3 % (0-2); EOSINOPHILS 7.5 % (0-7); HEMATOCRIT 40.8 % (36.0-48.0); IMMATURE GRANULOCYTES 0.1 % (0-5); LYMPHOCYTES 26.7 % (15-50); MCH 30.4 pg (26.0-34.0); MCHC 34.3 g/dL (31.0-37.0); MCV 88.5 fL (80.0-100.0); MEAN PLATELET VOLUME 11.9 fL (7.4-10.4); MONOCYTES 6.5 % (2-11); NEUTROPHILS 58.9 % (40-80); RBC 4.61 10x6/uL (4.00-5.40); RDW 12.4 % (11.5-14.5)
[2019-11-18 13:19] LABS: CALC OSMOLALITY 279 mosm/kg (275-300); CALCIUM 8.9 mg/dL (8.5-10.1); CARBON DIOXIDE 22.8 mmol/L (21.0-32.0); CHLORIDE - SERUM 107 mmol/L (98-107); CREATININE - SERUM 0.8 mg/dL (0.6-1.3); GLUCOSE 111 mg/dL (74-106); POTASSIUM - SERUM 3.8 mmol/L (3.5-5.1); SODIUM 141 mmol/L (136-145); UREA NITROGEN 7 mg/dL (7-18); eGFR NON AFRICAN AMERICAN 90 mL/min (90-120)
[2019-11-18 13:25] LABS: ALBUMIN 3.7 g/dL (3.4-5.0); ALKALINE PHOSPHATASE 74 U/L (30-120); ALT (SGPT) 31 U/L (10-68); AMYLASE - SERUM 34 U/L (25-115); BILIRUBIN - TOTAL 0.42 mg/dL (0.2-1.3); LIPASE 93 U/L (73-393); PROTEIN - SERUM 7.3 g/dL (6.4-8.2)
[2019-11-18 13:31] LABS: PLATELET COUNT 200 10x3/uL (130-400)
[2019-11-18 14:02] LABS: BILIRUBIN NEGATIVE (NEGATIVE); KETONE NEGATIVE (NEGATIVE); NITRITE NEGATIVE (NEGATIVE); UROBILINOGEN NORMAL (NORMAL)
[2019-11-18 14:03] LABS: BACTERIA FEW /hpf (NONE SEEN); EPITHELIAL CELLS RARE /hpf (0-5); RED CELLS - URINE 0-5 /hpf (0-5); WHITE CELLS - URINE RARE /hpf (0-5)
[2019-11-18] MEDS ORDERED: DICLOFENAC SODI50 MG PO (16:54)
[2019-11-18] MEDS ORDERED: LEVSIN/ANASP0.125 MG PO (16:54)
[2019-11-18] MEDS ORDERED: CHRONULAC30 ML PO (16:54)
== END 2019-11-18 17:54 | disposition home or self-care (01) ==
LOC: D.ER 12:14
PROVIDERS: Emergency Medicine
DX: R10.32 Left lower quadrant pain (principal); K59.00 Constipation, unspecified; K21.9 Gastro-esophageal reflux disease without esophagitis